=== PATIENT | female | born 1990 | race Caucasian/White ===

== ENCOUNTER 2017-10-20 13:37 | Emergency (ER) | payer OTHER ==
[2017-10-20 13:51] VITALS: BP 135/76
--- NOTE | 2017-10-20 13:55 | UC ---
FLU HPI - HPI Summary HPI Summary: cough, fever emesis times one yesterday no diarrhea--- - History of Current Complaint Chief Complaint: UCRespiratory Stated Complaint: VOMITING,FEVER Time Seen by Provider: 10/20/17 13:45 Hx Obtained From: Patient Hx Last Menstrual Period: January 2018 ?: Yes Onset/Duration: Gradual Onset, Lasting Days - 3 Severity Currently: Mild Severity Initially: Mild Pain Intensity: 0 Associated Signs & Symptoms: Positive: Fever, Cough, Sore Throat, Vomiting - Allergy/Home Medications Allergies/Adverse Reactions: Allergies Allergy/AdvReac Type Severity Reaction Status Date / Time Sulfa (Sulfonamide Allergy Hives Verified 10/20/17 13:51 Antibiotics) Home Medications: Home Medications Vit No.129/Iron/Folic [ One Daily Tablet] 1 tab PO DAILY [History Confirmed 10/20/17] PMH/Surg Hx/FS Hx/Imm Hx Previously Healthy: Yes - Surgical History Surgical History: None - Family History Known Family History: Positive: None - Social History Occupation: Works From/At Home Lives: With Family Alcohol Use: None Substance Use Type: None Smoking Status (MU): Never Smoked Tobacco Review of Systems Constitutional: Fever Skin: Negative Eyes: Negative ENT: Sore Throat Respiratory: Cough Cardiovascular: Negative Gastrointestinal: Vomiting Genitourinary: Negative Motor: Negative Neurovascular: Negative Musculoskeletal: Negative Neurological: Negative Psychological: Negative Is Patient Immunocompromised?: No All Other Systems Reviewed And Are Negative: Yes Physical Exam Triage Information Reviewed: Yes Appearance: Well-Appearing, No Pain Distress, Well-Nourished Vital Signs: Initial Vital Signs Temp 98.9 F 10/20/17 13:47 Pulse 94 10/20/17 13:47 Resp 12 10/20/17 13:47 BP 135/76 10/20/17 13:47 Pulse Ox 100 10/20/17 13:47 Vital Signs Reviewed: Yes Eye Exam: Normal Eyes: Positive: Conjunctiva Clear ENT Exam: Normal ENT: Positive: Normal ENT inspection, Hearing grossly normal, Pharynx normal, TMs normal. Negative: Nasal congestion, Nasal drainage, Tonsillar swelling, Tonsillar exudate, Trismus, Muffled voice, Hoarse voice, Dental tenderness, Sinus tenderness Dental Exam: Normal Neck exam: Normal Neck: Positive: Supple, Nontender, No Lymphadenopathy Respiratory Exam: Normal Respiratory: Positive: Chest non-tender, Lungs clear, Normal breath sounds, No respiratory distress, No accessory muscle use Cardiovascular Exam: Normal Cardiovascular: Positive: RRR, No Murmur, Pulses Normal, Brisk Capillary Refill Musculoskeletal Exam: Normal Musculoskeletal: Positive: Strength Intact, ROM Intact, No Edema Neurological Exam: Normal Neurological: Positive: Alert, Muscle Tone Normal Psychological Exam: Normal Skin Exam: Normal Diagnostics - Laboratory Diagnostic Studies Completed/Ordered: ua, rst influenza A/B (-) Flu Course/Dx - Course Course Of Treatment: tylenol for pain fever increase fluids follow with pcp - Differential Dx/Diagnosis Provider Diagnoses: Viral illness Discharge - Discharge Plan Condition: Stable Disposition: HOME Patient Education Materials: Upper Respiratory Infection (DC) Referrals: [facility] [Provider Group] - If Needed
[2017-10-23 16:18] LABS: Bordetella pertussis PCR Negative
--- NOTE | 2017-10-24 18:07 | UC ---
- Progress Note Progress Note: neg pertussis no change Lawrence 10/24/2017
== END 2017-10-20 14:22 | disposition home or self-care (01) ==
LOC: UCEAST 13:37
DX: B34.9 Viral infection, unspecified (principal)
CPT/HCPCS: 81003; 87502; 87651; 87798; 99212; G0463

== ENCOUNTER 2018-06-09 21:00 | Emergency (ER) | payer OTHER ==
--- NOTE | 2018-06-09 22:38 | RAD ---
EXAM: US Duplex Left Lower Extremity Veins CLINICAL HISTORY: 28 years old, female; Pain; Leg, lower; Left; Additional info: Left leg pain TECHNIQUE: Real-time duplex ultrasound scan of the left lower extremity veins integrating B-mode two-dimensional vascular structure, Doppler spectral analysis, color flow Doppler imaging and compression. COMPARISON: No relevant prior studies available. FINDINGS: Deep veins: Unremarkable. No DVT in the visualized common femoral, femoral, proximal deep femoral or popliteal veins. The veins demonstrate normal color flow, are normally compressible, with normal phasic flow and/or augmentation response. Superficial veins: Unremarkable. No thrombus in the visualized great saphenous vein. Soft tissues: No acute findings. No popliteal cyst. IMPRESSION: Normal left lower extremity duplex venous ultrasound. To contact [facility] with a general question: [facility] - [phone] For direct physician to physician contact: Physician Hotline - [phone] [facility] ([facility] Facility ID #[id number])
--- NOTE | 2018-06-09 22:39 | ED ---
Lower Extremity - HPI Summary HPI Summary: 28-year-old female presents with left leg pain for the past couple days. She is on control. She is nonsmoker. She doesn't know her family history. No recent travel or surgeries. States the pain is been traveling around her leg. Pain is greatest anterior and lateral aspect of her leg. No injury. - History of Current Complaint Chief Complaint: EDExtremityLower Stated Complaint: LT LEG ISSUE Time Seen by Provider: 06/09/18 21:32 Hx Last Menstrual Period: January 2018 Pain Intensity: 3 - Allergies/Home Medications Allergies/Adverse Reactions: Allergies Allergy/AdvReac Type Severity Reaction Status Date / Time Sulfa (Sulfonamide Allergy Hives Verified 10/20/17 13:51 Antibiotics) Home Medications: Home Medications Desogestrel-Ethinyl Estradiol [Juleber 0.15-30 mg-Mcg] 1 tab PO DAILY 06/09/18 [ History Confirmed 06/09/18] PMH/Surg Hx/FS Hx/Imm Hx Endocrine/Hematology History: Denies: Hx Anticoagulant Therapy Respiratory History: Denies: Hx Asthma Psychiatric History: Reports: Hx Anxiety, Hx Depression Infectious Disease History: No Infectious Disease History: Denies: Traveled Outside the [place] in Last 30 Days - Family History Known Family History: Positive: None, Unknown - Social History Alcohol Use: None Substance Use Type: Reports: None Smoking Status (MU): Never Smoked Tobacco Review of Systems Negative: Fever Negative: Chest Pain Negative: Shortness Of Breath Positive: Myalgia - left leg pain All Other Systems Reviewed And Are Negative: Yes Physical Exam Triage Information Reviewed: Yes Vital Signs On Initial Exam: Initial Vitals Temp Pulse Resp BP Pulse Ox 97.6 F 113 20 163/111 100 06/09/18 21:02 06/09/18 21:02 06/09/18 21:02 06/09/18 21:02 06/09/18 21:02 Vital Signs Reviewed: Yes Appearance: Positive: Well-Appearing Skin: Positive: Warm, Dry Head/Face: Positive: Normal Head/Face Inspection Eyes: Positive: Normal, Conjunctiva Clear ENT: Positive: Pharynx normal Respiratory/Lung Sounds: Positive: Clear to Auscultation, Breath Sounds Present Cardiovascular: Positive: Normal, RRR Musculoskeletal: Positive: Strength/ROM Intact - left leg, Other - tenderness left anterior mensah, good pulses, sensation grossly intact Neurological: Positive: Normal Psychiatric: Positive: Normal Diagnostics - Vital Signs Vital Signs Temp Pulse Resp BP Pulse Ox 06/09/18 21:02 97.6 F 113 20 163/111 100 - Laboratory Lab Statement: Any lab studies that have been ordered have been reviewed, and results considered in the medical decision making process. - Ultrasound No standard instances Ultrasound Interpretation: No Acute Changes Ultrasound Interpretation Completed By: Radiologist Lower Extremity Course/Dx - Course Course Of Treatment: 28-year-old female presents with left leg pain for the past couple days. She is on control. She is nonsmoker. She doesn't know her family history. No recent travel or surgeries. States the pain is been traveling around her leg. Pain is greatest anterior and lateral aspect of her leg. No injury. On exam mild tenderness anterior mensah. Neurovascular intact. Ultrasound negative. Told to take ibuprofen and to rest. Patient understands and agrees with plan. - Diagnoses Differential Diagnosis/HQI/PQRI: Positive: DVT, Sprain, Strain Provider Diagnoses: Left leg pain Discharge - Sign-Out/Discharge Documenting (check all that apply): Patient Departure - Discharge Plan Condition: Good Disposition: HOME Patient Education Materials: Leg Pain (ED) Referrals: No Primary Care Phys,NOPCP [Primary Care Provider] - Additional Instructions: no DVT seen on u/s Ice Elevate Take Tylenol or ibuprofen for pain every 6 hours Follow up with primary within 5 days Return to ED if develop any new or worsening symptoms - Billing Disposition and Condition Condition: GOOD Disposition: Home
[2018-06-09 23:06] VITALS: BP 157/102
== END 2018-06-09 23:05 | disposition home or self-care (01) ==
LOC: ED 21:00
DX: M79.605 Pain in left leg (principal)
CPT/HCPCS: 99281

== ENCOUNTER 2018-11-01 16:15 | Emergency (ER) | payer OTHER ==
--- NOTE | 2018-11-01 16:32 | ED ---
HPI Chest Pain - HPI Summary HPI Summary: A 28 y/o F presents to ED with c/o chest "tightness:" onset at 1430 today. Pt was driving at onset of sx. The CP radiated to the back and lasted 15-20 minutes before spontaneously resolving ADMISSIONS RN. Denies n/v, diaphoresis, dizziness/ lightheadedness. She has never had a CP episode similar to this, she has no cardiac PMHx aside from HTN at the end of her . She is a non-smoker. Denies surgeries. She does have anxiety and gets panic attacks, but she felt this afternoon's sx were felt different. - History of Current Complaint Chief Complaint: EDChestPainROMI Hx Obtained From: Patient Hx Last Menstrual Period: January 2018 Onset/Duration: Started Hours Ago, Resolved Timing: Lasting Minutes - 15-20 mins Initial Severity: Mild Current Severity: None Pain Intensity: 2 Pain Scale Used: 0-10 Numeric Chest Pain Radiates: Yes Chest Pain Radiates To:: Back Character: Tightness Associated Signs and Symptoms: Negative: Dizziness, Lightheadedness, Diaphoresis , Nausea, Vomiting Related History: Obesity - Allergy/Home Medications Allergies/Adverse Reactions: Allergies Allergy/AdvReac Type Severity Reaction Status Date / Time Sulfa (Sulfonamide Allergy Hives Verified 11/01/18 16:24 Antibiotics) Home Medications: Home Medications Norethindrone [Deblitane] 1 tab PO DAILY 11/01/18 [History Confirmed 11/01/18] PMH/Surg Hx/FS Hx/Imm Hx Previously Healthy: No Endocrine/Hematology History: Denies: Hx Anticoagulant Therapy, Hx Diabetes Cardiovascular History: Denies: Hx Hypercholesterolemia Respiratory History: Denies: Hx Asthma Psychiatric History: Reports: Hx Anxiety, Hx Depression - Surgical History Surgery Procedure, Year, and Place: Denies. Infectious Disease History: No Infectious Disease History: Denies: Traveled Outside the [place] in Last 30 Days - Family History Known Family History: Positive: Cardiac Disease - grandfather: CHF - Social History Occupation: Unemployed - OTHER Lives: With Family Alcohol Use: None Hx Substance Use: No Substance Use Type: Reports: None Hx Tobacco Use: No Smoking Status (MU): Never Smoked Tobacco Review of Systems Negative: Skin Diaphoresis Positive: Chest Pain - radiating to back; resolved Negative: Vomiting, Nausea Neurological: Other - neg: dizziness/lightheadedness All Other Systems Reviewed And Are Negative: Yes Physical Exam - Summary Physical Exam Summary: VITAL SIGNS: Reviewed. GENERAL: Patient is a well-developed and obese FEMALE who is lying comfortable in the stretcher. Patient is not in any acute respiratory distress. HEAD AND FACE: No signs of trauma. No ecchymosis, hematomas or skull depressions. No sinus tenderness. EYES: PERRLA, EOMI x 2, No injected conjunctiva, no nystagmus. EARS: Hearing grossly intact. Ear canals and tympanic membranes are within normal limits. MOUTH: Oropharynx within normal limits. NECK: Supple, trachea is midline, no adenopathy, no JVD, no carotid bruit, no c- spine tenderness, neck with full ROM. CHEST: Symmetric, no tenderness at palpation LUNGS: Clear to auscultation bilaterally. No wheezing or crackles. CVS: Regular rate and rhythm, S1 and S2 present, no murmurs or gallops appreciated. ABDOMEN: Soft, non-tender. No signs of distention. No rebound, no guarding, and no masses palpated. Bowel sounds are normal. EXTREMITIES: FROM in all major joints, no edema, no cyanosis or clubbing. NEURO: Alert and oriented x 3. No acute neurological deficits. Speech is normal and follows commands. SKIN: Dry and warm Triage Information Reviewed: Yes Vital Signs On Initial Exam: Initial Vitals Temp Pulse Resp BP Pulse Ox 99.2 F 107 16 153/119 100 11/01/18 16:20 11/01/18 16:20 11/01/18 16:20 11/01/18 16:20 11/01/18 16:20 Vital Signs Reviewed: Yes Diagnostics - Vital Signs Vital Signs Temp Pulse Resp BP Pulse Ox 11/01/18 16:20 99.2 F 107 16 153/119 100 - Laboratory Result Diagrams: 11/01/18 17:12 11/01/18 17:12 Lab Statement: Any lab studies that have been ordered have been reviewed, and results considered in the medical decision making process. - Radiology CXR Radiology Interpretation Completed By: Radiologist Summary of Radiographic Findings: IMPRESSION: No active cardiopulmonary disease is noted. ED provider has reviewed this report. - EKG 1637 Cardiac Rate: Tachycardia - 103 bpm EKG Rhythm: Sinus Tachycardia Summary of EKG Findings: no ST elevation, nml axis. Re-Evaluation - Re-Evaluation 1 Re-Evaluation Time: 19:10 Change: Improved Comment: Discussing results with pt and plans for D/C. Chest Pain Course/Dx - Course Assessment/Plan: This patient is a 28-year-old female who presents to the emergency department with a chief complaint of having chest pain. The patient reports a sharp pain when she was driving, it lasted for about 15 minutes and resolved. Patient reports that she has history of panic attacks and she felt that it was a panic attack. However she waited to come to the emergency department to rule out any heart problems. EKG is a normal sinus rhythm without any ST elevations. Test results without any significant abnormality, bili is negative, troponin 0.00, urinalysis is negative. Chest x-ray impression : No active Pulmonary disease. D-dimer is less than 200. Therefore I do not suspect that the patient has a PE. Since the patient doesnt have any comorbidities, I do not suspect patient has a localized syndrome. Heart score is 0. I discussed all the findings and test results with the patient. Patient was instructed to return to the emergency room immediately if any of the symptoms return or worsens. Plan of care was discussed with the patient and she understands and agrees. All questions were answered to patient satisfaction. There were no further complaints or concerns. Lung exam before discharge: CTA B/ L. Good air exchange. No wheezing or crackles heard. CVS: S1 and S2 present. No murmurs appreciated. Patient is alert and oriented x 3. Patient is hemodynamically stable. Patient will be discharged home with follow up PCP in the next 2-3 days. - Chest Pain Differential Diagnosis/HQI/PQRI: Acute OR, ACS, Angina, CHF, Chest Wall, GI Disease, Lower Respiratory Infection, Pulmonary Edema - Diagnoses Provider Diagnoses: Atypical chest pain Discharge - Sign-Out/Discharge Documenting (check all that apply): Patient Departure - D/C Patient Received Moderate/Deep Sedation with Procedure: No - Discharge Plan Condition: Stable Disposition: HOME Patient Education Materials: Chest Pain (ED) Referrals: [facility] [Outside] [facility] [place]Outside] - 3 Days Additional Instructions: FOLLOW UP WITH YOUR PRIMARY CARE PROVIDER WITHIN ONE WEEK FOR HIGH BLOOD PRESSURE NOTED TODAY. RETURN TO THE ED FOR ANY WORSENING OR NEW SYMPTOMS. - Billing Disposition and Condition Condition: STABLE Disposition: Home - Attestation Statements Document Initiated by Scribe: Yes Documenting Scribe: Laci Paez Provider For Whom Trever is Documenting (Include Credential): Dr. Franklyn Kerr MD Scribe Attestation: I, Laci Paez, scribed for Dr. Franklyn Kerr MD on 11/01/18 at 2226. Scribe Documentation Reviewed: Yes Provider Attestation: The documentation as recorded by the trever, Laci Paez accurately reflects the service I personally performed and the decisions made by me, Dr. Franklyn Kerr MD Status of Scribyosef Document: Viewed
[2018-11-01 16:59] LABS: Urine Appearance Clear; Urine Bacteria Absent (Absent); Urine Bilirubin Negative (Negative); Urine Blood 1+ (Negative); Urine Color Colorless; Urine Glucose Negative (Negative); Urine Ketones Negative (Negative); Urine Nitrite Negative (Negative); Urine Protein Negative (Negative); Urine Red Blood Cell Absent (Absent); Urine Specific Gravity 1.001 (1.010-1.030); Urine Squamous Epithelial Cell Present (Absent); Urine Urobilinogen Negative (Negative); Urine White Blood Cell Trace(0-5/hpf) (Absent)
--- OUTSIDE RECORDS SUMMARY | 2018-11-01 17:03 | XMS REPORT | Continuity of Care Document ---
:[address] [facility] Address [address] [place], [place] [id number] Phone Care Team Providers Name Role Phone May Swan NP Unavailable Unavailable Allergies, Adverse Reactions, Alerts Substance Reaction Status Sulfa (Sulfonamide Antibiotics) Nausea/Vomiting Active Medications Medication Instructions Dosage Effective Dates Status Comments (start - stop) Lyza 0.35 mg 1 tab po daily - Active tablet Apri 0.15 mg-0.03 take 1 tablet by - No Longer mg tablet oral route every Active day, skipping placebo week for continuous cycling Problems Condition Effective Dates (start - Clinical Status Comments stop) Encounter for initial prescription of contraceptive pills Encntr for cerv smear to cnfrm norm smr fol init abn smear Encntr for best second jobs exam (general) (routine) w/o abn findings Encounter for oth screening for malignant neoplasm of breast Encounter for surveillance of contraceptive pills Encounter for initial prescription of contraceptive pills Less than 8 weeks gestation of Human immunodeficiency virus [HIV] - counseling Encounter for test, result positive Threatened Encounter for surveillance of contraceptive pills Low grade intrepith lesion cyto smr crvx (LGSIL) Encounter for surveillance of contraceptive pills Other specified noninflammatory disorders of vagina Encounter for removal of intrauterine contraceptive device Encounter for initial prescription of contraceptive pills Encounter for prescription of emergency contraception Oth cond assoc w female genital organs and menstrual cycle Elevated blood-pressure reading, w/o diagnosis of htn RhD negative - Active Procedures Procedure Date OFFICE/OUTPATIENT VISIT, EST Method Initiation OTHER Medical Services Contraceptive Wallcovering Hanger.Svc. Other Wallcover[facility]anger[employer]Svc. STI Results Test Name Date and Time Measure Units Reference Range Abnormal Flag Status Comments No information Advance Directives Directive Yes / No Effective Date File Name No information Encounters Encounter Practice Location Reason(s) Diagnoses Date Provider Providers Description For Visit Copied on Encounter OFFICE/OUTPA [facility] Encounter for [place] Referring TIENT VISIT, [facility] [place] Control initial May. Provider: ROSEMARY Mcguire (chief prescription of [address] complaint) contraceptive pills [place], [address] [place] [address] [place], [address], [place], [place], [place], [address], [place], [address]. [id number], [place]. [place] tel:[phone] [facility] Encntr for cerv [facility] [place] smear to cnfrm norm May. [facility] smr fol init abn [address] smear [place], [address] [place], [place], [place], [address], [id number], [place]. [place] tel:[phone] [facility] Encntr for best second jobs exam [facility] Referring [facility] [place] (general) (routine) May. Provider: Shayla w/o abn [address] findingsEncounter [place], [address] [place] for malignant [place], St, St, [place], [place]oplasm [place], [place] [address], [place], [address]. [id number], surveillance of [place]. [place] contraceptive pills tel:[phone] [facility] Encounter for [facility] Referring [facility] [place] initial May. Provider: Shayla prescription of [address] contraceptive pills [place], [address] [place], [address], [place], [place], [place], [address], [place], [address]. [id number], [place]. [place] tel:[phone] [facility] Less than 8 weeks [facility] [place] gestation of 0-201 Leighann Southern [address] . [address] [place] [facility], [address] [place], [address], [place], [place], [address], [id number], [place]. [place] tel:+ tel:[phone] [facility] Human [facility] [place] immunodeficiency 4-201 Priscila. [facility] virus [HIV] [address] [facility] [address] [place] result [place], , [place], [place], [address]. [id number], tel:[phone] [place] [phone] tel:[phone] [facility] Encounter for [facility] [place] surveillance of 3-201 Katey. [facility] contraceptive pills [address] [place] [facility], [address] [place], [address], [place], [place], [address]. [id number], tel:+ [phone] tel:[phone] [facility] Low grade intrepith [facility] [place] lesion cyto smr 8-201 Lacy. Southern crvx [address] (LGSIL)Encounter [facility], [facility] for surveillance of St, [address] [place] contraceptive [place], , [place], [place] [address]. [id number], noninflammatory tel:+[phone] disorders of vagina [id number] tel:[phone] [facility] Encounter for [facility] [place] removal of 6-201 Leighann Southern intrauterine 7 . [address] [facility], [facility] deviceEncounter for St, [address] [place] initial [place], [place], [place], [place], contraceptive [address], [id number], pillsEncounter for [place]. [place] prescription of tel:[phone] tel:[phone] contraceptionOth cond assoc w female genital organs and menstrual cycleElevated blood-pressure reading, w/o diagnosis of htn Family History Family Member Diagnosis Age At Onset 1st degree relative No hx of osteoporosis 1st degree relative No hx of venous thromboembolism Mother Cancer, breast 49 1st degree relative No hx of coronary heart disease (female <65, male <55) 1st degree relative No hx of cancer of breast, colon, endometrium or ovary Immunizations Vaccine Date Status Comments No information Payers Payer name Insurance type Covered libertarian ID Authorization(s) Juan [employer]OZCO [facility] CI [id number] Social History Type Description Quantity Date Captured Comments Alcohol Use Details Unknown Caffeine Use Details Unknown Tobacco Use Status Current non-smoker Smoking Status Never smoker Non-Smoking Tobacco : No Details Available : No Details Available 2018 Use Details Sex Female Vital Signs Date / Height Weight BMI Pulse Blood Temperature Respiratory Body Head BMI Pulse Inhaled Time: Rate Pressure Rate Surface Circumference percentile Ox Ox Area 61.00 265.00 50.0 148/2019 in lbs 7 mm[Hg] 12:02 kg/m PM eter (2) Chief Complaint And Reason For Visit Most recent encounter only, dated '10/09/2018 12:00'. Control ( chief complaint) Reason For Referral Reason For Referral No information Plan Of Treatment Date Type Action Status No information History Of Present Illness Encounter Date Complaint History Of Present Illness No information Functional Status Date Functional Assessment No information Medications Administered Medication Instructions Dosage Effective Dates (start - stop) Status Comments No information Instructions Date Instruction Additional Information No information Assessments Type Assessment Date assessment Encounter for initial prescription of contraceptive pills 2018 Goals Health Concern Goal Type Priority Status Date No information Medical Equipment Description Device [place] Device Identifier Effective Dates (start - stop ) Status No information Mental Status Date Cognitive Assessment No information Health Concerns Observation Date No information Concern Status Date No information
--- OUTSIDE RECORDS SUMMARY | 2018-11-01 17:03 | XMS REPORT | Continuity of Care Document ---
:1990 Author Organization [facility] Address [address] [place], [place] [id number] Phone Care Team Providers Name Role Phone May Swan NP Unavailable Unavailable Allergies, Adverse Reactions, Alerts Substance Reaction Status Sulfa (Sulfonamide Antibiotics) Nausea/Vomiting Active Medications Medication Instructions Dosage Effective Dates (start - Status Comments stop) Lyza 0.35 mg tablet 1 tab po daily - Active Problems Condition Effective Dates (start - Clinical Status Comments stop) Encounter for initial prescription of contraceptive pills Encntr for cerv smear to cnfrm norm smr fol init abn smear 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 [facility] [address] [place] [place], [place], [address], [id number], [place]. [place] tel:[phone] [facility] for [facility] [place] initial May. Provider: [facility] prescription of [address] contraceptive pills [place], [address] [place] [address] [place], [address], [place], [place], [address], [place], [address]. [id number], [place]. [place] tel:[phone] [facility] Encntr for cerv Jan- [facility] [place] smear to cnfrm norm May. [facility] fol init abn [address] smear [place], [address] [place], [place], [address], [id number], [place]. 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 Provider: [facility] w/o abn [address] findingsEncounter [place], [address] [place] for malignant [place], St, St, [place], [place], [place] [address], [place], [address]. [id number], surveillance of [place]. [place] contraceptive pills tel:[phone] [facility] [place] initial May. Provider: [facility] prescription of [address] contraceptive pills [place], [address] [place], [address], [place], [place], [address], [place], [address]. [id number], [place]. [place] tel:[phone] [facility] Less than 8 weeks [facility] [place] gestation of 0-201 Leighann [facility] 7 . [address] [place], [address] [place], [place], [address], [id number], [place]. [place] tel:+ tel:[phone] [facility] Human Aug-0 [facility] [place] immunodeficiency 4-201 Priscila. [facility] virus [HIV] [address] counselingEncounter [place] [facility], [facility] for test, , [address] [place] result [place], , [place], [place], [address]. [id number], tel:[phone] tel:[phone] [facility] Encounter for Nov-0 [facility] [place] surveillance of 3-201 Katey. [facility] contraceptive pills [address] [place] [facility], [facility] St, [address] [place], [place], [address]. [id number], tel:[phone] tel:[phone] [facility] Low grade intrepith Sep- [facility] [place] lesion cyto smr 8-201 Lacy. [facility] crvx [address] (LGSIL)Encounter [facility], [facility] for surveillance of St, [place] contraceptive [place], , [place], [place] [address]. [id number], noninflammatory tel:[phone] of [phone] tel:[phone] [facility] Encounter for Sep- [facility] [place] removal of 6201 Leighann [facility] intrauterine 7 . [address] [facility] deviceEncounter for St, [place] initial [place], [place], [place] [address], [id number], pillsEncounter for [place]. [place] prescription of tel:[phone] tel:+ [phone] contraceptionOth cond assoc w female genital organs [...] information Payers Payer name Insurance type Covered alliance party ID Authorization(s) Juan [employer] [facility] CI [id number] Social History Type Description Quantity Date Captured Comments Alcohol Use Details Unknown Caffeine Use Details Unknown Tobacco Use Status Unknown Smoking Status Never smoker Sex Female Vital Signs Date / Height Weight BMI Pulse Blood Temperature Respiratory Body Head BMI Pulse Inhaled Time: Rate Pressure Rate Surface Circumference percentile [place] Area No information Chief Complaint And Reason For Visit No information Reason For Referral Reason For Referral No information Plan Of Treatment Date Type Action Status No information History Of Present Illness Encounter Date Complaint History Of Present Illness No information Functional Status Date Functional Assessment No information Medications Administered Medication Instructions Dosage Effective Dates (start - stop) Status Comments No information Instructions Date Instruction Additional Information No information Assessments Type Assessment Date No information Goals Health Concern Goal Type Priority Status Date No information Medical Equipment Description Device [place] Device Identifier Effective Dates (start - stop ) Status No information Mental Status Date Cognitive Assessment No information Health Concerns Observation Date No information Concern Status Date No information
[2018-11-01 17:20] LABS: ABS Basophils 0 10^3/ul (0-0.2); ABS Eosinophils 0.1 10^3/ul (0-0.6); ABS Monocytes 0.6 10^3/ul (0-0.8); ABS Neutrophils 6.3 10^3/ul (1.5-7.7); ABS Nucleated RBC 0 10^3/ul; Eosinophil % 1.4 %; Hematocrit 37 % (35-47); Hemoglobin 12.1 g/dl (12.0-16.0); Mean Corpuscular HGB Conc 33 g/dl (31-36); Mean Corpuscular Hemoglobin 25 pg (27-31); Mean Corpuscular Volume 77 fL (80-97); Mean Platelet Volume 8.1 fL (7.4-10.4); Nucleated Red Blood Cells % 0; Platelet Count 206 10^3/ul (150-450); Red Blood Count 4.75 10^6/ul (4.00-5.40); Red Cell Distribution Width 14 % (10.5-15); White Blood Count 9.1 10^3/ul (3.5-10.8)
[2018-11-01 17:37] LABS: ALT 22 U/L (7-52); AST 18 U/L (13-39); Albumin 4.1 g/dL (3.2-5.2); Albumin/Globulin Ratio 1.4 (1-3); Alkaline Phosphatase 68 U/L (34-104); Anion Gap 6 mmol/L (2-11); Blood Urea Nitrogen 12 mg/dL (6-24); CO2 Carbon Dioxide 24 mmol/L (22-32); Chloride 107 mmol/L (101-111); Creatine Kinase 110 U/L (10-223); EGFR African American 103.3 (>60); EGFR Non-African American 85.4 (>60); Globulin 2.9 g/dL (2-4); Glucose 94 mg/dL (70-100); Sodium 137 mmol/L (135-145)
[2018-11-01 17:41] LABS: CKMB ng/mL 1.8 ng/mL (0.6-6.3)
[2018-11-01 17:44] LABS: HCG Pregnancy < 0.60 mIU/mL
[2018-11-01 19:31] VITALS: BP 150/99
== END 2018-11-01 19:30 | disposition home or self-care (01) ==
LOC: ED 16:15
DX: R07.89 Other chest pain (principal); F41.9 Anxiety disorder, unspecified; F32.9 Major depressive disorder, single episode, unspecified; Z88.2 Allergy status to sulfonamides
CPT/HCPCS: 36415; 71045; 80053; 81003; 81015; 82550; 82553; 83605; 83880; 84443; 84484; 84702; 85025; 85379; 87086; 93005; 99283

== ENCOUNTER 2019-10-24 14:58 | Emergency (ER) | payer OTHER ==
[2019-10-24 15:23] VITALS: BP 152/83
--- NOTE | 2019-10-24 15:58 | UC ---
Respiratory Complaint HPI - HPI Summary HPI Summary: 29 y0 at 34 weeks gestational age, diagnosed with inlfuenza yesterday at [facility] and was started on Tamiflu. concerned because she was feeling dizzy yesterday, along with noting that her O2 sats by home oximetry were in the 90-95% range. She has no chest pain, vision changes. States that her blood pressure has been elevated during this , and she is taking a baby aspirin daily, but not on an antihypertensive. She has not had pre-eclampsia or induced hypertension in the past. States that she has good movements. - History of Current Complaint Chief Complaint: UCGeneralIllness Stated Complaint: FLU+ 90-95 O2 SAT. Time Seen by Provider: 10/24/19 15:51 Hx Obtained From: Patient Hx Last Menstrual Period: 34 weeks Onset/Duration: Sudden Onset - onset of lfu symptoms yesterday. Timing: Constant Severity Initially: Mild Severity Currently: Moderate Pain Intensity: 6 Character: Cough: Nonproductive Associated Signs And Symptoms: Positive: Fever, Nasal Congestion. Negative: Dyspnea - Risk Factors Pulmonary Embolism Risk Factors: Negative Cardiac Risk Factors: Hypertension Pseudomonas Risk Factors: Negative Tuberculosis Risk Factors: Negative - Allergies/Home Medications Allergies/Adverse Reactions: Allergies Allergy/AdvReac Type Severity Reaction Status Date / Time Sulfa (Sulfonamide Allergy Hives Verified 10/24/19 15:23 Antibiotics) Home Medications: Home Medications Norethindrone [Deblitane] 1 tab PO DAILY 11/01/18 [History Confirmed 10/24/19] Escitalopram * [Lexapro *] 20 mg PO DAILY 10/24/19 [History Confirmed 10/24/19] Oseltamivir CAP* [Tamiflu CAP*] 1 tab PO BID 10/24/19 [History Confirmed ] PMH/Surg Hx/FS Hx/Imm Hx - Additional Past Medical History Additional PMH: morbind obesity Other History Of: Negative For: Anticoagulant Therapy - Surgical History Surgical History: Yes Surgery Procedure, Year, and Place: adnoids. 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 Negative: Shortness Of Breath Cardiovascular: Positive: Negative Gastrointestinal: Positive: Negative Genitourinary: Positive: Negative Motor: Positive: Negative Neurovascular: Positive: Negative Musculoskeletal: Positive: Negative Neurological/Mental Status: Positive: Negative Psychological: Positive: Negative Is Patient Immunocompromised?: No Physical Exam Triage Information Reviewed: Yes Appearance: Ill-Appearing - looks mildly unwell Vital Signs: Initial Vital Signs Temp 97.6 F 10/24/19 15:08 Pulse 109 10/24/19 15:08 Resp 18 10/24/19 15:08 BP 152/83 10/24/19 15:08 Pulse Ox 98 10/24/19 15:08 Eyes: Positive: Conjunctiva Clear ENT: Positive: Pharynx normal Dental Exam: Normal Neck: Positive: Supple, Nontender, No Lymphadenopathy Respiratory: Positive: Lungs clear, Normal breath sounds Cardiovascular: Positive: RRR, No Murmur, Tachycardia Musculoskeletal: Positive: No Edema Neurological Exam: Normal Neurological: Positive: Alert, Muscle Tone Normal Psychological Exam: Normal Skin Exam: Normal Diagnostics - Laboratory Lab Results: Urine with 3 + leuks (without symptoms), NEGATIVE for protein. Respiratory Course/Dx - Course Course Of Treatment: Discussed normal oxygen saturation here, but concerned about elevated blood pressure. Although not tachypneic, she is tachycardic. Urine is without proteinuria, but + esterace. Initial blood pressure reading 0f 152/88, decreased to 142/80 after being seated , large arm cuff. - Differential Dx/Diagnosis Differential Diagnosis/HQI/PQRI: Influenza, Other - induced hypertension Provider Diagnosis: Influenza - Physician Notification/Consults Discussed Patient Care With: Nel Rodriguez - Reviewed BP elevation with Dr. Agosto; she advised follow up next week as arranged, not alarmed by current readings Time Discussed With Above Provider: 16:00 Discharge ED - Sign-Out/Discharge Documenting (check all that apply): Patient Departure All imaging exams completed and their final reports reviewed: No Studies - Discharge Plan Condition: Stable Disposition: HOME Patient Education Materials: Influenza (ED) Referrals: Parminder Dennison MD [Primary Care Provider] - Additional Instructions: Your oxygen status here is normal, and clinically you do not show evidence of a complicating infection. I am concerned about your elevated blood pressure and will check with with Dr. Rodriguez about the reading obtained here today. If you are short of breath, have chest pain, or decreased baby movements please go to the emergency room. - Billing Disposition and Condition Condition: STABLE Disposition: Home
== END 2019-10-24 16:20 | disposition home or self-care (01) ==
LOC: UCEAST 14:58
DX: O99.513 Diseases of the respiratory system complicating pregnancy, third trimester (principal); J11.1 Influenza due to unidentified influenza virus with other respiratory manifestations; Z3A.34 34 weeks gestation of pregnancy; Z88.2 Allergy status to sulfonamides
CPT/HCPCS: 81003; 87086; 99211; G0463

== ENCOUNTER 2019-11-16 06:18 | Inpatient (IN) | payer OTHER ==
--- OUTSIDE RECORDS SUMMARY | 2019-11-16 06:21 | XMS REPORT | Continuity of Care Document ---
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 [phone] Problems Active Problems Provider Date H/O: section Onset: 11/28/2017 Social History Type Date Description Comments Sex Unknown Tobacco Use Start: Unknown Never Smoked Cigarettes Smoking Status Reviewed: 04/06/19 Never Smoked Cigarettes ETOH Use Denies alcohol use Recreational Drug Use Denies Drug Use Exercise Type/Frequency Exercises regularly Seat Belt/Car Seat Always uses seat belt Allergies, Adverse Reactions, Alerts Active Allergies Reaction Severity Comments Date Sulfa Hives/Vomiting 06/01/2017 Sulfa Antibiotics Hives, Nausea And Vomiting 08/01/2017 Seasonal Allergies 06/01/2017 Medications Active Medications SIG Qnty Indications Ordering Provider Date Oseltamivir Phosphate 1 by mouth 10caps Chey Pisano, 10/23/2019 twice/ day for 5 CNM 75mg Capsules days Ondansetron HCL take one tablet 20tabs Lois Maciel, CNM 05/16/2019 4mg by mouth every 6 Tablets to 8 hours as needed for nausea 1 po qd Unknown Tablets Iron 1 by mouth every Unknown 325(65Fe) mg day Tablets Fish Oil 1 by mouth every Unknown 500mg Capsules day Lexapro 1 tab by mouth Unknown every day Medications Administered in Office Medication SIG Qnty Indications Ordering Provider Date Injection Rho (D) Immune Nel Rodriguez MD 10/08/2019 Globulin, Human, One Dose Package Injection PT SCRN Tbco Id as Non User Nel Rodriguez MD 04/13/2019 Injection PT SCRN Tbco Id as Non User Nel Rodriguez MD 04/06/2019 Injection Injection Rho (D) Immune Matthew Amaya M.D. 09/14/2017 Globulin, Human, One Dose Package Injection Immunizations CPT Code Status Date Vaccine Lot # [id number] Given 09/14/2017 Tetnus, Diptheria Toxoids And Acellular Pertussis, 499PG PT > 7Yrs Old Vital Signs Date Vital Result Comment 05/16/2019 10:58am BP Systolic 142 mmHg BP Diastolic 94 mmHg Height 60.98 inches 5'0.98" Weight 266.00 lb BMI (Body Mass Index) 50.3 kg/m2 Last Menstrual Period [id number] 4 Parity 3 04/13/2019 11:17am BP Systolic 132 mmHg BP Diastolic 78 mmHg Height 60.98 inches 5'0.98" Weight 268.00 lb BMI (Body Mass Index) 50.7 kg/m2 Last Menstrual Period 0550826 4 Parity 3 Results Test Acquired Date Facility Test Result H/L Range Note Laboratory test 11/08/2019 [facility] Genital For <pending> [place] [address] GRP B Strep [phone] Only Laboratory test 09/12/2019 [facility] Glucose 1 HR 108 mg/dL Normal 70-160 1 [place] [address] Post Prandial [phone] CBC With No 09/12/2019 [facility] White Blood 9.8 Normal 3.5- 10[place]8 [place] [address] Count 10^3/uL [phone] Red Blood Count 3.84 10^6/uL Normal 3.70-4.87 Hemoglobin 10.4 g/dL Low 12.0-16.0 Hematocrit 31 % Low 35-47 Mean Corpuscular Volume 80 fL Normal 80-97 Mean Corpuscular Hemoglobin 27 pg Normal 27-31 Mean Corpuscular HGB Conc 34 g/dL Normal 31-36 Red Cell Distribution Width 15 % Normal 10-15 Platelet Count 185 10^3/uL Normal 150-450 Mean Platelet Volume 8.3 fL Normal 7.4-10.4 Laboratory test 09/12/2019 [facility] AB Screen NEGATIVE 2 [place] [address] [phone] Laboratory test 08/03/2019 [facility] Cytology SEE RESULT 3 [place] [address] BELOW [phone] GC/Chlamydia Dna 08/03/2019 [facility] GCCHL Disclaimer (SEE NOTE) [address] [place] [address] [phone] Chlamydia trachomatis Trena Negative Negative Neisseria gonorrhoeae (GC) Trena Negative Negative Laboratory test 06/25/2019 [facility] Glucose 1 HR 115 mg/dL Normal 70-160 5 [place] [address] Post Prandial [phone] Afp,Screen 06/18/2019 [facility] Results [place] [address] Summary [phone] Neural Tube Defect Estimate SEE BELOW 6 Collection Date 06/18/19 Maternal Date of 90 Calculated Age At MARIELLE 29 years Maternal Weight 266 lbs Insulin Dependent Diabetes No Current Cigarette Smoking Stat non-smoker Patient Race non-Black Number of Fetuses 1 Number of Chorions Monochorionic Ivf No Prev Preg w/Neural Tube Defect No Patient/Father of Baby Has NTD No Initial Or Repeat Testing Initial testing Physician Phone Number [phone] MARIELLE by LMP 11/26/19 GA On Collection By Dates SEE BELOW wk,d 7 GA Used In Risk Estimate Dates estimate Afp 17.5 ng/mL Afp MoM 0.68 MoM <2.50 Interpretation See Comment 8 Additional Comments See Comment 9 Recommended Follow Up None. General Test Information See Comment 10 Lead 06/18/2019 [facility] Lead,Venous, B < 1.0 g/dL 0.0- 4.9 11 [place] [address] [phone] Venous/Capillary Venous Submitting Laboratory Phone [phone] Laboratory 06/18/2019 [facility] Syphillis Negative Negative 13 [place] [address] Igg W/Reflex [phone] RPR HIV 1&2 p24 06/18/2019 [facility] HIV 4th [place] [address] Generation [phone] Laboratory 06/18/2019 [facility] Hemoglobin 5.3 % Normal 4.0- 5.6 14 [place] [address] A1c [phone] Hepatitis B Surface Antigen Nonreactive Nonreactive 15 Type And Screen 06/18/2019 [facility] Patient [place] [address] [phone] Antibody Screen NEGATIVE Laboratory test 06/18/2019 [facility] Uric Acid 4.2 mg/dL Normal 2.3-6.6 16 [place] [address] [phone] Rubella Screen IgG Immune Immune 17 Comp Metabolic 06/18/2019 [facility] Sodium 136 mmol/L Normal 135-145 Panel [place], [place] [address] [phone] Potassium 4.4 mmol/L Normal 3.5-5.0 Chloride 106 mmol/L Normal 101-111 Co2 Carbon Dioxide 25 mmol/L Normal 22-32 Anion Gap 5 mmol/L Normal 2-11 Glucose 79 mg/dL Normal 70-100 Blood Urea Nitrogen 8 mg/dL Normal 6-24 Creatinine 0.63 mg/dL Normal 0.51-0.95 BUN/Creatinine Ratio 12.7 Normal 8-20 Calcium 9.2 mg/dL Normal 8.6-10.3 Total Protein 6.7 g/dL Normal 6.4-8.9 Albumin 3.7 g/dL Normal 3.2-5.2 Globulin 3.0 g/dL Normal 2-4 Albumin/Globulin Ratio 1.2 Normal 1-3 Total Bilirubin 0.30 mg/dL Normal 0.2-1.0 Alkaline Phosphatase 60 U/L Normal 34-104 Alt 15 U/L Normal 7-52 Ast 13 U/L Normal 13-39 Egfr Non- 111.7 >60 Egfr 135.2 >60 18 CBC With No 06/18/2019 [facility] White Blood 9.1 10^3/uL Normal 3.5-10.8 [place] [address] Count [phone] Red Blood Count 4.30 10^6/uL Normal 3.70-4.87 Hemoglobin 11.8 g/dL Low 12.0-16.0 Hematocrit 35 % Normal 35-47 Mean Corpuscular Volume 81 fL Normal 80-97 Mean Corpuscular Hemoglobin 27 pg Normal 27-31 Mean Corpuscular HGB Conc 34 g/dL Normal 31-36 Red Cell Distribution Width 14 % Normal 10-15 Platelet Count 188 10^3/uL Normal 150-450 Mean Platelet Volume 8.9 fL Normal 7.4-10.4 GC/Chlamydia Dna 06/18/2019 [facility] GCCHL Disclaimer (SEE NOTE) [address] [place] [address] [phone] Chlamydia trachomatis Trena Negative Negative Neisseria gonorrhoeae (GC) Trena Negative Negative Laboratory test 06/18/2019 [facility] Miscellaneous Test See Comment 20 finding [place], [place] [address] [phone] Urine Culture And 05/16/2019 [facility] Urine Culture SEE RESULT 21 [place] [address] BELOW [phone] 1 [id number] 2 [id number] 3 SEE RESULT BELOW Name: EMILEE CAVANAUGH : [address]: Nel Rodriguez MD Acct: [id number] Unit: [id number] AGE: 29 Location: [facility] Re08/03/19 SEX: F Status: REG REF SPEC: [id number] LUCINDA: 08/03/19-1359 [facility] DR: Nel Rodriguez MD REQ: [id number] RECD: 08/03/19 STATUS: SOUT _ ORDERED: TP IMAGE ANALYS, HPV/Thin Prep COMMENTS: [id number] FINAL DIAGNOSIS Negative for Intraepithelial lesion or Malignancy HPV RESULTS Date Time Test Result Flag (u) Normal Range 08/03/19 1359 HPV TRENA Negative Negative The high-risk HPV types detected by the assay include: 16, 18, 31, 33, 35, 39, 45, 51, 52, 56, 58, 59, 66, and 68. SPECIMEN(S) RECEIVED A. Ectocervical/Endocervical CYTOLOGY ADEQUACY Specimen Adequacy: Satisfactory of evaluation Transformation zone component identified CONTINUED ON NEXT PAGE DEPARTMENT OF PATHOLOGY, [address] [place] [address] Haresh Mcdonald M.D. Director [facility] # [id number] CYTOLOGY PATIENT INFORMATION Patient Information: HPV: High risk HPV RNA testing regardless of pap results. Actual Specimen Date: 08/03/19 Last Menstrual Date: 02/20/19 Signed by and Reported on: LUIS EDUARDO Archer (ASCP) 6810 This Pap test was evaluated with the assistance of the CrunchyrollPrep Test Imaging System. Due to cytologic findings at the construction plumber microscope, comprehensive manual rescreening by a Fish Hatchery Superintendent may be required. The Pap Smear is a screening test designed to aid in the detection of premalignant and malignant conditions of the uterine cervix. It is not a diagnostic procedure and should not be used as the sole means of detecting cervical cancer. Both false- positive and false- negative reports do occur. Depending on your risk status, a Pap smear should be obtained and evaluated every 1-3 years. END OF REPORT DEPARTMENT OF PATHOLOGY, [address] [place] [address] Haresh Mcdonald M.D. Director [facility] # [id number] 4 As with all diagnostic procedures, the laboratory results obtained should be used in conjunction with other clinical information available to the physician, including confirmation by another method, as applicable. 5 [id number] 6 RESULT: 7 RESULT: 17,0 8 RESULT: Screen negative for neural tube defects. 9 RESULT: Reviewed by Filemon Rodriguez M.D. 10 This screening provides an estimation of risk, not a diagnosis. Incorrect or incomplete information may significantly alter results. Results may be unreliable in twin pregnancies with a demise. Results are not available for pregnancies with triplets and higher-order multiples. A positive result occurs when the AFP MoM equals or exceeds 2.5. Screen results and family history influence individual risk. If there is a family history of a neural tube defect, chromosome abnormality, or other inherited condition, consider the option of a genetic consultation. For further information, please contact the maternal screening laboratory at . ADDITIONAL INFORMATION This test was developed and its performance characteristics determined by [facility] in a manner consistent with CLIA requirements. This test has not been cleared or approved by the U.S. Food and Drug Administration. Test Performed by: [facility] - [address] [address] Customs Investigator: Nelson Sweet M.D. Ph.D.; CLIA# [id number] 11 ADDITIONAL INFORMATION Testing performed by Inductively Coupled Plasma-Mass Spectrometry (ICP-MS). This test was developed and its performance characteristics determined by [facility] in a manner consistent with CLIA requirements. This test has not been cleared or approved by the U.S. Food and Drug Administration. 12 Test Performed by: [facility] - [facility] [address] [place] [address] Customs Investigator: Nelson Sweet M.D. Ph.D.; CLIA# [id number] 13 [id number] 14 Therapeutic target for the treatment of diabetes mellitus patients is <7% HBA1C, and in selective patients <6.0%. Please refer to [place] [employer] diabetic care guidelines for further information. 15 [id number] 18 Because ethnic data is not always readily available, this report includes an eGFR for both -Americans and non- Americans. The National Kidney Disease Education Program (NKDEP) does not endorse the use of the MDRD equation for patients that are not between the ages of 18 and 70, are , have extremes of body size, muscle mass, or nutritional status, or are non- or non-. According to the National Kidney Foundation, irrespective of diagnosis, the stage of the disease is based on the level of kidney function: Stage Description GFR(mL/min/1.73 m(2)) 1 Kidney damage with normal or decreased GFR 90 2 Kidney damage with mild decrease in GFR 60-89 3 Moderate decrease in GFR 30-59 4 Severe decrease in GFR 15-29 5 Kidney failure <15 (or dialysis) 19 As with all diagnostic procedures, the laboratory results obtained should be used in conjunction with other clinical information available to the physician, including confirmation by another method, as applicable. 20 Test Result Flag Unit [facility] Drug Screen, U Alcohol Negative mg/dL Cutoff: 10 Amphetamines Negative ng/mL REFERENCE VALUE Cutoff: 500 Barbiturates Negative ng/mL REFERENCE VALUE Cutoff: 200 Benzodiazepines Negative ng/mL REFERENCE VALUE Cutoff: 100 Cocaine Negative ng/mL REFERENCE VALUE Cutoff: 150 Methadone metabolite Negative ng/mL REFERENCE VALUE Cutoff: 300 Opiates Negative ng/mL REFERENCE VALUE Cutoff: 300 Phencyclidine Negative ng/mL Cutoff: 25 Tetrahydrocannabinol Negative ng/mL Cutoff: 50 ADDITIONAL INFORMATION This report is intended for use in clinical monitoring or management of patients. It is not intended for use in employment-related testing. This test has been modified from the ear nose and throat specialist's instructions. Its performance characteristics were determined by [facility] in a manner consistent with CLIA requirements. This test has not been cleared or approved by the U.S. Food and Drug Administration. Oxycodone Negative ng/mL REFERENCE VALUE Cutoff: 100 ADDITIONAL INFORMATION This report is intended for use in clinical monitoring or management of patients. It is not intended for use in employment-related testing. Drugs detected: See Comment Citalopram/Escitalopram detected; assay unable to distinguish. No other drugs detected. Quantitative testing may be available at an additional charge. Specimens are retained for 10 business days. This is a screening assay only and false-positive or false-negative results can occur. If confirmation testing of any drugs found is needed, please call the lab. Specimens are retained in the laboratory for two weeks. This test is not intended for use in compliance monitoring or employment-related testing. ADDITIONAL INFORMATION This test was developed and its performance characteristics determined by [facility] in a manner consistent with CLIA requirements. This test has not been cleared or approved by the U.S. Food and Drug Administration. Test Performed by: [place] [address] Customs Investigator: Nelson Sweet M.D. Ph.D.; CLIA# [id number] 21 SEE RESULT BELOW Name: EMILEE CAVANAUGH : [address]: Lois Maciel CNM Acct: [id number] Unit: [id number] AGE: 29 Location: [facility] Re05/16/19 SEX: F Status: REG REF SPEC: [id number] LUCINDA: 05/16/19-1108 RAMIN BRIAN: Lois Maciel CNM REQ: [id number] RECD: 05/16/19-3081 STATUS: COMP _ SOURCE: URINE SPDES: ORDERED: Urine Culture COMMENTS: [id number] Urine Source: Random Procedure Result Reported Site Urine Culture Final 05/18/19- 1018 ML No growth of clinically significant organisms * ML - Main Lab . END OF REPORT DEPARTMENT OF PATHOLOGY, [address] [place] [address] Haresh Mcdonald M.D. Director [facility] # [id number] Procedures Date Code Description Status 11/08/2019 14174 Biophysical Profile W/ NST Completed 10/30/2019 08740 Non-Stress Test Completed 10/08/2019 47148 Injection Intramuscular Or Subcutaneous Completed 09/12/2019 99728 Echography Uterus Follow-Up Or Repeat Completed Medical Devices Description No Information Available Encounters Description No Information Available Assessments Date Code Description Provider 11/08/2019 O99.213 Obesity complicating , third Ultrasounds trimester 11/08/2019 O10.012 Pre-existing essential hypertension Ultrasounds complicating , second trimester 10/30/2019 O99.213 Obesity complicating , third Adria Ovalle MD trimester 10/30/2019 O10.012 Pre-existing essential hypertension Adria Ovalle MD complicating , second trimester 10/30/2019 O34.211 Maternal care for low transverse scar from Adria Ovalle MD previous delivery 10/08/2019 O99.213 Obesity complicating , third Nel Rodriguez MD trimester 09/12/2019 O10.012 Pre-existing essential hypertension Nel Rodriguez MD complicating , second trimester 09/12/2019 Z36.9 Encounter for screening, Adria Ovalle MD unspecified 09/12/2019 O99.212 Obesity complicating , second Nle Rodriguez MD trimester 09/12/2019 O10.012 Pre-existing essential hypertension Nel Rodriguez MD complicating , second trimester 09/12/2019 Z36.9 Encounter for screening, Laboratory unspecified 09/12/2019 O10.012 Pre-existing essential hypertension Ultrasounds complicating , second trimester 09/12/2019 O99.212 Obesity complicating , second Ultrasounds trimester 08/03/2019 O34.211 Maternal care for low transverse scar from Nel Rodriguez MD previous delivery 06/25/2019 Z36.9 Encounter for screening, Matthew Amaya M.D. unspecified 06/25/2019 Z36.9 Encounter for screening, Laboratory unspecified 06/18/2019 Z36.9 Encounter for screening, Nirmala Bailey MD unspecified 06/18/2019 O34.211 Maternal care for low transverse scar from Wally De La Cruz JR, DO previous delivery 06/18/2019 Z36.9 Encounter for screening, Laboratory unspecified 05/16/2019 O99.211 Obesity complicating , first Lois Maciel CNM trimester Plan of Treatment 04/13/2019 - Nel Rodriguez MDO36.80x1 with inconclusive viability, fetus 1Comments:Pt to schedule f/u routine ob visit. Will need to repeat pap due to h/o abnl and discuss weight. Functional Status Description No Information Available Mental Status Description No Information Available Referrals Refer to Reason for Referral Status Appt Date [facility] Pt has BMI of 50 Has had C/S -->--> Closed 07/17/2019 C/S as her obstetric Hx Would like opportunity to TOLAC, not appropriate [place] [facility] [place] appropriate [place] candidate for [facility], we could co-manage also complicated by suspected CHTN Has not had Anatomy USN yet, this should ideally just be done at [facility] Last delivery was at [address] [address] [phone]
--- OUTSIDE RECORDS SUMMARY | 2019-11-16 06:21 | XMS REPORT | Continuity of Care Document ---
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 [phone] Problems Active Problems Provider Date H/O: section [...] CPT Code Status Date Vaccine Lot # [id number] Given 09/14/2017 Tetnus, Diptheria Toxoids And Acellular Pertussis, 499PG PT > 7Yrs Old Vital Signs Date Vital Result Comment 05/16/2019 10:58am BP Systolic 142 mmHg BP Diastolic 94 mmHg Height 60.98 inches 5'0.98" Weight 266.00 lb BMI (Body Mass Index) 50.3 kg/m2 Last Menstrual Period 1642426 4 Parity 3 04/13/2019 11:17am BP Systolic 132 mmHg BP Diastolic 78 mmHg Height 60.98 inches 5'0.98" Weight 268.00 lb BMI (Body Mass Index) 50.7 kg/m2 Last Menstrual Period 5522497 4 Parity 3 Results Test Acquired Date Facility Test Result H/L Range Note Laboratory test 11/08/2019 [facility] Genital For <pending> [place] [address] GRP B Strep [phone] Only Laboratory test 09/12/2019 [facility] Glucose 1 HR 108 mg/dL Normal 70-160 1 [place] [address] Post Prandial [phone] CBC With No 09/12/2019 [facility] White Blood 9.8 Normal 3.5- 10.8 [place] [address] Count 10^3/uL [phone] Red Blood Count 3.84 10^6/uL Normal 3.70-4.87 Hemoglobin 10.4 g/dL Low 12.0-16.0 Hematocrit 31 % Low 35-47 Mean Corpuscular Volume 80 fL Normal 80-97 Mean Corpuscular Hemoglobin 27 pg Normal 27-31 Mean Corpuscular HGB Conc 34 g/dL Normal 31-36 Red Cell Distribution Width 15 % Normal 10-15 Platelet Count 185 10^3/uL Normal 150-450 Mean Platelet Volume 8.3 fL Normal 7.4-10.4 Laboratory test 09/12/2019 [facility] AB Screen NEGATIVE 2 [place] [address] [phone] Laboratory test 08/03/2019 [facility] Cytology SEE RESULT 3 [place] [address] BELOW [phone] GC/Chlamydia Dna 08/03/2019 [facility] GCCHL Disclaimer (SEE NOTE) 4 [place] [address] [phone] Chlamydia trachomatis Trena Negative Negative Neisseria gonorrhoeae (GC) Trena Negative Negative Laboratory test 06/25/2019 [facility] Glucose 1 HR 115 mg/dL Normal 70-160 5 [place] [address] Post Prandial [phone] Afp,Screen 06/18/2019 [facility] Results [place] [address] Summary [phone] Neural Tube Defect Estimate SEE BELOW 6 [...] Repeat Testing Initial testing Physician Phone Number [phone] MARIELLE by LMP 11/26/19 GA On Collection By Dates SEE BELOW wk,d 7 GA Used In Risk Estimate Dates estimate Afp 17.5 ng/mL Afp MoM 0.68 MoM <2.50 Interpretation See Comment 8 Additional Comments See Comment 9 Recommended Follow Up None. General Test Information See Comment 10 Lead 06/18/2019 [facility] Lead,Venous, B < 1.0 g/dL 0.0- 4.9 11 [place] [address] [phone] Venous/Capillary Venous Submitting Laboratory Phone [phone] Laboratory 06/18/2019 [facility] Syphillis Negative Negative 13 [place] [address] Igg W/Reflex [phone] RPR HIV 1&2 p24 06/18/2019 [facility] HIV 4th [place] [address] Generation [phone] Laboratory 06/18/2019 [facility] Hemoglobin 5.3 % Normal 4.0- 5.6 14 [place] [address] A1c [phone] Hepatitis B Surface Antigen Nonreactive Nonreactive 15 Type And Screen 06/18/2019 [facility] Patient [place] [address] [phone] Antibody Screen NEGATIVE Laboratory test 06/18/2019 [facility] Uric Acid 4.2 mg/dL Normal 2.3-6.6 16 [place] [address] [phone] Rubella Screen IgG Immune Immune 17 Comp Metabolic 06/18/2019 [facility] Sodium 136 mmol/L Normal 135-145 [place] [address] [phone] Potassium 4.4 mmol/L Normal 3.5-5.0 Chloride 106 [...] 135.2 >60 18 CBC With No 06/18/2019 [facility] White Blood 9.1 10^3/uL Normal 3.5-10.8 [place] [address] Count [phone] Red Blood Count 4.30 10^6/uL Normal 3.70-4.87 Hemoglobin 11.8 g/dL Low 12.0-16.0 Hematocrit 35 % Normal 35-47 Mean Corpuscular Volume 81 fL Normal 80-97 Mean Corpuscular Hemoglobin 27 pg Normal 27-31 Mean Corpuscular HGB Conc 34 g/dL Normal 31-36 Red Cell Distribution Width 14 % Normal 10-15 Platelet Count 188 10^3/uL Normal 150-450 Mean Platelet Volume 8.9 fL Normal 7.4-10.4 GC/Chlamydia Dna 06/18/2019 [facility] GCCHL Disclaimer (SEE NOTE) 19 [place] [address] [phone] Chlamydia trachomatis Trena Negative Negative Neisseria gonorrhoeae (GC) Trena Negative Negative Laboratory test 06/18/2019 [facility] Miscellaneous Test See Comment 20 [place] [address] [phone] Urine Culture And 05/16/2019 [facility] Urine Culture SEE RESULT 21 [place] [address] BELOW [phone] [id number] 2 [id number] 3 SEE RESULT BELOW Name: EMILEE CAVANAUGH : [address]: Nel Rodriguez MD Acct: [id number] Unit: [id number] AGE: 29 Location: [facility] Re08/03/19 SEX: F Status: REG REF SPEC: [id number] LUCINDA: 08/03/19-[address]: Nel Rodriguez MD REQ: [id number] RECD: 08/03/19 STATUS: SOUT _ ORDERED: TP IMAGE ANALYS, HPV/Thin Prep COMMENTS: [id number] FINAL DIAGNOSIS Negative for Intraepithelial lesion or [...] CONTINUED ON NEXT PAGE DEPARTMENT OF PATHOLOGY, [address] [place] [address] Haresh Mcdonald M.D. Director [facility] # [id number] CYTOLOGY PATIENT INFORMATION Patient Information: HPV: High risk HPV RNA testing regardless of pap results. Actual Specimen Date: 08/03/19 Last Menstrual Date: 02/20/19 Signed by and Reported on: LUIS EDUARDO Archer (ASCP) 1438 This Pap test was evaluated with the assistance of the In[employer] Moneyp Test Imaging System. Due to cytologic findings at the public speaking coach microscope, comprehensive manual rescreening by a Film Recordist may be required. The Pap Smear is [...] years. END OF REPORT DEPARTMENT OF PATHOLOGY, [address] [place] [address] Haresh Mcdonald M.D. Director [facility] # [id number] 4 As with all diagnostic procedures, the laboratory results obtained should be used in conjunction with other clinical information available to the physician, including confirmation by another method, as applicable. 5 [id number] 6 RESULT: 7 RESULT: 17,0 8 RESULT: [...] developed and its performance characteristics determined by [facility] in a manner consistent with CLIA requirements. This test has not been cleared or approved by the U.S. Food and Drug Administration. Test Performed by: [address] [address] Foreclosure Specialist: Nelson Sweet M.D. Ph.D.; CLIA# [id number] 11 ADDITIONAL INFORMATION Testing performed by Inductively Coupled Plasma-Mass Spectrometry (ICP-MS). This test was developed and its performance characteristics determined by [facility] in a manner consistent with CLIA requirements. This test has not been cleared or approved by the U.S. Food and Drug Administration. 12 Test Performed by: [facility] [address] [place] [address] Foreclosure Specialist: Nelson Sweet M.D. Ph.D.; [facility]# [id number] 13 [id number] 14 Therapeutic target for the treatment of diabetes mellitus patients is <7% HBA1C, and in selective patients <6.0%. Please refer to [place] Diabetes Association diabetic care guidelines for further information. 15 [id number] 18 Because ethnic data is not always [...] This test has been modified from the gravity prospecting observer helper's instructions. Its performance characteristics were determined by [facility] in a manner consistent with CLIA [...] developed and its performance characteristics determined by [facility] in a manner consistent with CLIA requirements. This test has not been cleared or approved by the U.S. Food and Drug Administration. Test Performed by: [facility] [address] [place] [address] Foreclosure Specialist: Nelson Sweet M.D. Ph.D.; CLIA# [id number] 21 SEE RESULT BELOW Name: EMILEE CAVANAUGH : [address]: Lois Maciel CNM Acct: [id number] Unit: [id number] AGE: 29 Location: [facility] Re05/16/19 SEX: F Status: REG REF SPEC: [id number] LUCINDA: 05/16/19-[address]: Lois Maciel CNM REQ: [id number] RECD: 05/16/19-2323 STATUS: COMP _ SOURCE: URINE [facility]: ORDERED: Urine Culture COMMENTS: [id number] Urine Source: Random Procedure Result Reported Site Urine Culture Final 05/18/19- 1018 ML No growth of clinically significant organisms * ML - Main Lab . END OF REPORT DEPARTMENT OF PATHOLOGY, [address] [place] [address] Haresh Mcdonald M.D. Director [facility] # [id number] Procedures Date Code Description Status 11/08/2019 93110 Biophysical Profile W/ NST Completed 10/30/2019 09448 Non-Stress Test Completed 10/08/2019 78992 Injection Intramuscular Or Subcutaneous Completed 09/12/2019 72058 Echography Uterus Follow-Up Or Repeat Completed Medical Devices Description No Information Available Encounters Description No Information Available Assessments Date Code Description Provider 11/08/2019 O99.213 Obesity complicating , third Nel Rodriguez MD trimester 11/08/2019 O99.213 Obesity complicating , third Nel Rodriguez MD trimester 11/08/2019 O10.012 Pre-existing essential hypertension Nel Rodriguez MD complicating , second trimester 11/08/2019 O99.213 Obesity complicating , third Ultrasounds [...] unspecified 09/12/2019 O99.212 Obesity complicating , second Nel Rodriguez MD trimester 09/12/2019 O10.012 Pre-existing [...] care for low transverse scar from Wally Jono JR, DO previous delivery 06/18/2019 Z36.9 Encounter [...] to Reason for Referral Status Appt Date [facility] Pt has BMI of 50 Has had C/S -->--> Closed 07/17/2019 C/S as her obstetric Hx Would like opportunity to TOLAC, not appropriate TOLAC candidate for [facility] [place] Could be appropriate [place] candidate for [place], we could co-manage also complicated by suspected CHTN Has not had Anatomy USN yet, this should ideally just be done at [place] Last delivery was at [address] [id number] [phone]
--- OUTSIDE RECORDS SUMMARY | 2019-11-16 06:21 | XMS REPORT | Continuity of Care Document ---
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 [phone] Problems Active Problems Provider Date H/O: section [...] CPT Code Status Date Vaccine Lot # [id number] Given 09/14/2017 Tetnus, Diptheria Toxoids And Acellular Pertussis, 499PG PT > 7Yrs Old Vital Signs Date Vital Result Comment 05/16/2019 10:58am BP Systolic 142 mmHg BP Diastolic 94 mmHg Height 60.98 inches 5'0.98" Weight 266.00 lb BMI (Body Mass Index) 50.3 kg/m2 Last Menstrual Period 1223207 4 Parity 3 04/13/2019 11:17am BP Systolic 132 mmHg BP Diastolic 78 mmHg Height 60.98 inches 5'0.98" Weight 268.00 lb BMI (Body Mass Index) 50.7 kg/m2 Last Menstrual Period 8217493 4 Parity 3 Results Test Acquired Date Facility Test Result H/L Range Note Laboratory test 11/08/2019 [facility] Genital For <pending> [place] [address] GRP B Strep [phone] Only Laboratory test 09/12/2019 [facility] Glucose 1 HR 108 mg/dL Normal 70-160 1 [place] [address] Post Prandial [phone] CBC With No 09/12/2019 [facility] White Blood 9.8 Normal 3.5- 10.8 [place] [address] Count 10^3/uL [phone] Red Blood Count 3.84 10^6/uL Normal 3.70-4.87 Hemoglobin 10.4 g/dL Low 12.0-16.0 Hematocrit 31 % Low 35-47 Mean Corpuscular Volume 80 fL Normal 80-97 Mean Corpuscular Hemoglobin 27 pg Normal 27-31 Mean Corpuscular HGB Conc 34 g/dL Normal 31-36 Red Cell Distribution Width 15 % Normal 10-15 Platelet Count 185 10^3/uL Normal 150-450 Mean Platelet Volume 8.3 fL Normal 7.4-10.4 Laboratory test 09/12/2019 [facility] AB Screen NEGATIVE 2 [place] [address] [phone] Laboratory test 08/03/2019 [facility] Cytology SEE RESULT 3 finding [place] [address] BELOW [phone] GC/Chlamydia Dna 08/03/2019 [facility] GCCHL Disclaimer (SEE NOTE) 4 Probe [place] [address] [phone] Chlamydia trachomatis Trena Negative Negative Neisseria gonorrhoeae (GC) Trena Negative Negative Laboratory test 06/25/2019 [facility] Glucose 1 HR 115 mg/dL Normal 70-160 5 finding [place] [address] Post Prandial [phone] Afp,Screen 06/18/2019 [facility] Results [place] [address] Summary [phone] Neural Tube Defect Estimate SEE BELOW 6 [...] Repeat Testing Initial testing Physician Phone Number [phone] MARIELLE by LMP 11/26/19 [place] On Collection By Dates SEE BELOW wk,d 7 GA Used In Risk Estimate Dates estimate Afp 17.5 ng/mL Afp MoM 0.68 MoM <2.50 Interpretation See Comment 8 Additional Comments See Comment 9 Recommended Follow Up None. General Test Information See Comment 10 Lead 06/18/2019 [facility] Lead,Venous, B < 1.0 g/dL 0.0- 4.9 11 [place] [address] [phone] Venous/Capillary Venous Submitting Laboratory Phone [phone] Laboratory 06/18/2019 [facility] Syphillis Negative Negative 13 [place] [address] Igg W/Reflex [phone] RPR HIV 1&2 p24 06/18/2019 [facility] HIV 4th [place] [address] Generation [phone] Laboratory 06/18/2019 [facility] Hemoglobin 5.3 % Normal 4.0- 5.6 14 [place] [address] A1c [phone] Hepatitis B Surface Antigen Nonreactive Nonreactive 15 Type And Screen 06/18/2019 [facility] Patient [place] [address] [phone] Antibody Screen NEGATIVE Laboratory test 06/18/2019 [facility] Uric Acid 4.2 mg/dL Normal 2.3-6.6 16 [place] [address] [phone] Rubella Screen IgG Immune Immune 17 Comp Metabolic 06/18/2019 [facility] Sodium 136 mmol/L Normal 135-145 Panel [place], [place] [address]39 [phone] Potassium 4.4 mmol/L Normal 3.5-5.0 Chloride 106 [...] 135.2 >60 18 CBC With No 06/18/2019 [facility] White Blood 9.1 10^3/uL Normal 3.5-10.8 [place] [address] Count [phone] Red Blood Count 4.30 10^6/uL Normal 3.70-4.87 Hemoglobin 11.8 g/dL Low 12.0-16.0 Hematocrit 35 % Normal 35-47 Mean Corpuscular Volume 81 fL Normal 80-97 Mean Corpuscular Hemoglobin 27 pg Normal 27-31 Mean Corpuscular HGB Conc 34 g/dL Normal 31-36 Red Cell Distribution Width 14 % Normal 10-15 Platelet Count 188 10^3/uL Normal 150-450 Mean Platelet Volume 8.9 fL Normal 7.4-10.4 GC/Chlamydia Dna 06/18/2019 [facility] GCCHL Disclaimer (SEE NOTE) 19 [place] [address] [phone] Chlamydia trachomatis Trena Negative Negative Neisseria gonorrhoeae (GC) Trena Negative Negative Laboratory test 06/18/2019 [facility] Miscellaneous Test See Comment 20 [place] [address] [phone] Urine Culture And 05/16/2019 [facility] Urine Culture SEE RESULT [address] [place] [address] BELOW [phone] [id number] 3 SEE RESULT BELOW Name: EMILEE CAVANAUGH : [address]: Nel Rodriguez MD Acct: [id number] Unit: [id number] AGE: 29 Location: [facility] Re08/03/19 SEX: F Status: REG REF SPEC: [id number] LUCINDA: 08/03/19-[address] [facility] [address]: Nel Rodriguez MD REQ: [id number] RECD: 08/03/19 STATUS: SOUT _ ORDERED: TP IMAGE ANALYS, HPV/Thin Prep COMMENTS: [id number] FINAL DIAGNOSIS Negative for Intraepithelial lesion or [...] CONTINUED ON NEXT PAGE DEPARTMENT OF PATHOLOGY, [address] [place] [address] Haresh Mcdonald M.D. Director [facility] # [id number] CYTOLOGY PATIENT INFORMATION Patient Information: HPV: High risk HPV RNA testing regardless of pap results. Actual Specimen Date: 08/03/19 Last Menstrual Date: 02/20/19 Signed by and Reported on: LUIS EDUARDO Archer (ASCP) 6838 This Pap test was evaluated with the assistance of the PenteoSurroundPrep Test Imaging System. Due to cytologic findings at the dope house operator helper microscope, comprehensive manual rescreening by a Salvage Machine Operator may be required. The Pap Smear is [...] years. END OF REPORT DEPARTMENT OF PATHOLOGY, [address] [place] [address] Haresh Mcdonald M.D. Director [facility] # [id number] 4 As with all diagnostic procedures, the laboratory results obtained should be used in conjunction with other clinical information available to the physician, including confirmation by another method, as applicable. 5 [id number] 6 RESULT: 7 RESULT: 17,0 8 RESULT: [...] developed and its performance characteristics determined by [facility] in a manner consistent with CLIA requirements. This test has not been cleared or approved by the U.S. Food and Drug Administration. Test Performed by: [facility] - [address] [address] Electro Mechanical Assembler: Nelson Sweet M.D. Ph.D.; CLIA# [id number] 11 ADDITIONAL INFORMATION Testing performed by Inductively Coupled Plasma-Mass Spectrometry (ICP-MS). This test was developed and its performance characteristics determined by [facility] in a manner consistent with CLIA requirements. This test has not been cleared or approved by the U.S. Food and Drug Administration. 12 Test Performed by: [facility] [address] [place] [address] Electro Mechanical Assembler: Nelson Sweet M.D. Ph.D.; [facility]# [id number] 13 [id number] 14 Therapeutic target for the treatment of diabetes mellitus patients is <7% HBA1C, and in selective patients <6.0%. Please refer to [place] Diabetes Association diabetic care guidelines for further information. 15 [id number] 18 Because ethnic data is not always [...] This test has been modified from the service clerk's instructions. Its performance characteristics were determined by [facility] in a manner consistent with CLIA requirements. [...] developed and its performance characteristics determined by [facility] in a manner consistent with CLIA requirements. This test has not been cleared or approved by the U.S. Food and Drug Administration. Test Performed by: [place] [address] Electro Mechanical Assembler: Nelson Sweet M.D. Ph.D.; CLIA# [id number] 21 SEE RESULT BELOW Name: EMILEE CAVANAUGH : [address]: Lois Maciel CNM Acct: [id number] Unit: [id number] AGE: 29 Location: [facility] Re05/16/19 SEX: F Status: REG REF SPEC: [id number] LUCINDA: 05/16/19-[address]: Lois Maciel CNM REQ: [id number] RECD: 05/16/19-3765 STATUS: COMP _ SOURCE: URINE SPDES: ORDERED: Urine Culture COMMENTS: [id number] Urine Source: Random Procedure Result Reported Site Urine Culture Final 05/18/19- 1018 ML No growth of clinically significant organisms * ML - Main Lab . END OF REPORT DEPARTMENT OF PATHOLOGY, [address] [place] [address] Haresh Mcdonald M.D. Director [facility] # [id number] Procedures Date Code Description Status 11/08/2019 81667 Biophysical Profile W/ NST Completed 10/30/2019 69155 Non-Stress Test Completed 10/08/2019 91809 Injection Intramuscular Or Subcutaneous Completed 09/12/2019 54250 Echography Uterus Follow-Up Or Repeat Completed Medical [...] to Reason for Referral Status Appt Date [facility] Pt has BMI of 50 Has had C/S -->--> Closed 07/17/2019 C/S as her obstetric Hx Would like opportunity to TOLAC, [place] appropriate [place] [facility] [place] candidate for [place], we could co-manage also complicated by suspected CHTN Has not had Anatomy USN yet, this should ideally just be done at [place] Last delivery was at [address] [address] [phone]
--- NOTE | 2019-11-16 07:21 | HP ---
General Information - Reason for Visit repeat section - General Information Maternal Age: 29 Grav: 4 Para: 3 SAB: 0 IEA: 0 Estimated Due Date: 11/28/19 Determined By: Early Ultrasound Maternal Blood Type and Rh: A Negative - Results this Serology/RPR Result: Non-Reactive Rubella Result: Immune HBsAg Result: Negative HIV Result: Negative GBS Culture Result: Negative Past Medical History Delivery History: Hx C/Section, See Records Pertinent Past Medical History: See Records Pertinent Past Surgical History: See Records Pertinent Family History: See Records - Antepartal Records Antepartal Records: Reviewed, Complicated by: - obesity/chronic hypertension Review of Systems Constitutional: Comfortable CV Complaint: No Respiratory: Shortness of Breath: No Gastrointestinal: No Nausea/Vomiting Genitourinary: No Dysuria, No Bleeding, No Leaking Fluid Musculoskeletal: No Complaint Movement: Normal Exam Allergies/Adverse Reactions: Allergies Sulfa (Sulfonamide Antibiotics) Allergy (Verified 11/16/19 06:41) Hives Vital Signs 11/16/19 06:52 Temperature 96.8 F Pulse Rate 109 Respiratory 18 Rate Blood Pressure 157/99 (mmHg) O2 Sat by Pulse 99 Oximetry - Measurements Height: 5 ft 1 in Weight: 284 lb Weight in lbs: 284.756679 Body Mass Index (BMI): 53.6 Pre- Weight: 266 lb Weight Gained This : 18 lbs and 0 ozs - Exam Breast: Breast Exam Deferred CVA: No CVA Tenderness Extremities: No Edema Heart: Normal Rhythm/Heart Sounds HEENT: No Significant Findings Lungs: Clear Bilaterally Rectal: Rectal Exam Deferred Reflexes: DTR 2+ Thyroid: No Thyromegaly - Abdominal Exam Abdomen Exam: Non-Tender - Ultrasound/Biophysical Profile Ultrasound Status: Not Done Targeted Exam Findings See L&D Outpatient Visit Provider Note for Findings: N/A EFM Findings - External Monitor Findings Baseline Heart Rate: 140 External Monitor Findings: Accelerations Present, No Pattern of Variable or Late Decelerations, Variability Moderate Contractions: None Assessment/Plan - Assessment Pt 29 yo present for repeat section. Pt declines tubal ligation and is planning on Mirena post - Plan Plan: C/S Delivery - Reviewed with patient risks and benifits of repeat section. Pt accepts risk to include but not limited to infection, bleeding, damage to internal organs, need for blood transfusion. Consent form signed and reviewed together.
[2019-11-16] MEDS ORDERED: Sodium Citrate/Citric Acid* 15 ML UDC ONE (07:28)
[2019-11-16 07:30] LABS: Urine Benzodiazepine Screen None Detected (None Detect); Urine Opiates Screen None Detected (None Detect)
[2019-11-16] MEDS ORDERED: ceFOXitin 2 GM IVPREMIX* 2 GM/50 ML BAG ONE (07:36)
[2019-11-16] MEDS ORDERED: OXYTOCIN* 10 UNITS/ML 1 ML VIAL ONE (07:45)
[2019-11-16] MEDS ORDERED: Bupivacaine 0.5% SDV PF* 30ML VIAL ONE (07:45)
[2019-11-16] MEDS ORDERED: Morphine PF AMP (0.5MG/ML)* 5 MG/10 ML AMP ONE (07:46)
[2019-11-16] MEDS ORDERED: Phenylephrine 40 MCG/ML SYRINGE ONE (08:11)
[2019-11-16] MEDS ORDERED: Ketorolac INJ* 30 MG/ML 1 ML VIAL ONE (09:03)
[2019-11-16] MEDS ORDERED: fentaNYL* 50 MCG/ML 2 ML VIAL (100 MCG VIAL) IV PRN (09:38)
[2019-11-16] MEDS ORDERED: Sodium Citrate/Citric Acid* 15 ML UDC PO ONE (09:38)
[2019-11-16] MEDS ORDERED: Buffered Lidocaine 1% SYRIN* 1 ML/SYRINGE INTRADERM ONE (09:38)
[2019-11-16] MEDS ORDERED: Naloxone* 0.4 MG/ML 1 ML VIAL IV PRN ×2 (09:38→09:39)
[2019-11-16] MEDS ORDERED: Ondansetron INJ* 2 MG/ML VIAL IV PRN (09:39)
[2019-11-16] MEDS ORDERED: Scopolamine 1.5 mg* PATCH TRANSDERM PRN (09:39)
[2019-11-16] MEDS ORDERED: DiMENhydriNATE IV* 50 MG/ML VIAL IV PUSH PRN (09:39)
[2019-11-16] MEDS ORDERED: Witch Hazel PAD* JAR TOPICAL PRN (09:51)
[2019-11-16] MEDS ORDERED: Dibucaine 1% 28.35 GM TUBE PR PRN (09:51)
[2019-11-16] MEDS ORDERED: RHO D Immune Globulin (HUMAN)* 300 MCG = 1,500 I.U. INJ IM ONE (09:51)
[2019-11-16] MEDS ORDERED: Glycerin ADULT SUPP PR PRN (09:51)
[2019-11-16] MEDS ORDERED: Oxytocin in LR* 20 UNITS/1,000 ML BAG IVPB SCH (10:00)
[2019-11-16] MEDS ORDERED: Lactated Ringers 1000 ML Bag* 1,000 ML IV SCH ×2 (10:00)
[2019-11-16] MEDS: Ketorolac INJ* 30 MG/ML 1 ML VIAL IV SCH ×3 (10:05→21:18)
[2019-11-16] MEDS: Acetaminophen TAB* 325 MG PO SCH ×2 (11:52→15:16)
[2019-11-16] MEDS: Simethicone TAB* 80 MG TAB.CHEW PO SCH ×3 (12:35→21:19)
[2019-11-16] MEDS: Docusate CAP* 100 MG PO SCH ×2 (15:15→21:19)
[2019-11-16] MEDS: oxyCODONE/Acetamin 5/325 MG* TAB PO PRN ×2 (16:49→21:19)
[2019-11-16] MEDS: Escitalopram * 20 MG TABLET PO SCH (21:19)
--- NOTE | 2019-11-16 21:39 | OP ---
OPERATIVE REPORT: DATE OF OPERATION: 11/16/19 DATE OF : 89 SURGEON: Nirmala Bailey MD. [employer] PERSON: Wally De La Cruz DO. PRE-OP DIAGNOSIS: Desires repeat section, chronic hypertension, morbid obesity. POST-OP DIAGNOSIS: Desires repeat section, chronic hypertension, morbid obesity, delivered. OPERATIVE PROCEDURE: Repeat low-transverse section. ESTIMATED BLOOD LOSS: 600 cc. URINE OUTPUT: 600 cc of clear yellow urine. FLUIDS: 3100 cc of crystalloid. FINDINGS: Revealed a vertex female , body cord x1, vacuum assisted delivery, Apgars were 7 and 9, weight was 7 pounds 5 ounces. Normal appearing placenta. Manually extracted three-vessel cord, intact. Uterine cavity without evidence of retained membranes of placental tissue. Normally palpated tubes and ovaries. Had omental adhesion to the anterior abdominal wall. COMPLICATIONS: None apparent. DISPOSITION: Stable to recovery room. DESCRIPTION OF PROCEDURE: The patient was placed in dorsal lithotomy position. The abdomen was prepped and draped in a sterile standard fashion. Anesthesia was tested to appropriate level and the patient was identified with universal protocol. Incision was made to prior incision with scalpel. This was carried down to the fascia. Fascia was scored in the midline, extended laterally and superiorly using Celis scissors. Peritoneum was entered bluntly. The peritoneal incision was extended bluntly. Bladder blade was inserted. Lower uterine segment was identified. An incision was made in the lower uterine segment, tented up with an Allis. Amniotomy was created. The incision was extended laterally and superiorly using bandage scissors. The infant was found to be in the GALO position. Vacuum was applied after attempt was made for delivery of the head and the head was then delivered with vacuum x1 application. Shoulders and body cord was then reduced. Cord was allowed to pulse and baby was vigorous on field and then cord was clamped and the was handed off to awaiting boat hop. Appropriate cord blood was then obtained. Placenta was then manually extracted, three-vessel cord and intact. Uterine cavity was noted to be free of any membranes or placental tissue. Hysterotomy site was then reapproximated using 0 Vicryl x2, first layer running locked, second layer running imbricated. Tubes and ovaries were palpated normally. Hysterotomy site was noted to be hemostatic. There was dense omental adhesions to the anterior peritoneal wall, which was clamped x2 with Angela, transected and suture ligated using 0 Vicryl in HENEY fashion. Hemostasis was assured. Peritoneum was then reapproximated in a running fashion using 3-0 Vicryl. Subfascial area was visualized. Hemostasis assured and the fascia itself was then reapproximated using 0 Vicryl x2 in a running fashion. Subcu was lavaged. Hemostasis assured and the subcuticular tissue greater than 2 cm was reapproximated using 3-0 Vicryl in an interrupted fashion. The skin was then reapproximated using 4-0 Monocryl in a subcuticular fashion. Mastisol and Steris were then applied. All sponge, instruments, and blade counts were correct throughout the case. The patient tolerated the procedure well and went to the recovery room in stable condition. [id number]/CPS #: [id number] MTDD
[2019-11-17] MEDS: oxyCODONE TAB* 5 MG TAB PO PRN ×5 (01:35→23:38)
[2019-11-17] MEDS: Acetaminophen TAB* 325 MG PO PRN (01:35)
[2019-11-17] MEDS: Ketorolac INJ* 30 MG/ML 1 ML VIAL IV SCH (04:22)
[2019-11-17 05:44] LABS: ABS Eosinophils 0.2 10^3/ul (0-0.6); ABS Lymphocytes 1.8 10^3/ul (1.0-4.8); ABS Monocytes 1.1 10^3/ul (0-0.8); ABS Neutrophils 8.8 10^3/ul (1.5-7.7); Eosinophil % 1.4 %; Hematocrit 25 % (35-47); Hemoglobin 8.3 g/dL (12.0-16.0); Lymphocyte % 15.3 %; Mean Corpuscular HGB Conc 33 g/dL (31-36); Mean Corpuscular Hemoglobin 25 pg (27-31); Mean Corpuscular Volume 75 fL (80-97); Mean Platelet Volume 7.7 fL (7.4-10.4); Platelet Count 163 10^3/uL (150-450); Red Blood Count 3.36 10^6 /uL (3.70-4.87); Red Cell Distribution Width 16 % (10-15); White Blood Count 11.9 10^3/uL (3.5-10.8)
[2019-11-17] MEDS ORDERED: Tetan/Diph/Pertus SYR(Tdap)* 0.5 ML SYR(BOOSTRIX) use SYR contains LATEX IM ONE (09:00)
[2019-11-17] MEDS: Docusate CAP* 100 MG PO SCH ×3 (09:18→20:10)
[2019-11-17] MEDS: Prenatal Vitamin TAB PO SCH (09:18)
[2019-11-17] MEDS: Ferrous Gluconate TAB* 324 MG TAB PO SCH ×2 (09:18→20:10)
[2019-11-17] MEDS: Simethicone TAB* 80 MG TAB.CHEW PO SCH ×4 (09:18→20:10)
[2019-11-17] MEDS: Acetaminophen TAB* 325 MG PO SCH (10:13)
[2019-11-17] MEDS: Ibuprofen TAB* 600 MG PO PRN ×2 (11:04→17:04)
[2019-11-17] MEDS: Escitalopram * 20 MG TABLET PO SCH (20:10)
[2019-11-18] MEDS: Acetaminophen TAB* 325 MG PO PRN ×5 (03:12→21:13)
[2019-11-18] MEDS: Ibuprofen TAB* 600 MG PO PRN ×2 (03:13→09:21)
[2019-11-18] MEDS: oxyCODONE TAB* 5 MG TAB PO PRN ×5 (08:18→23:24)
[2019-11-18] MEDS: Simethicone TAB* 80 MG TAB.CHEW PO SCH ×4 (08:21→21:14)
[2019-11-18] MEDS: Ferrous Gluconate TAB* 324 MG TAB PO SCH ×2 (08:22→21:11)
[2019-11-18] MEDS: Docusate CAP* 100 MG PO SCH ×3 (08:22→21:11)
[2019-11-18] MEDS: Prenatal Vitamin TAB PO SCH (08:26)
[2019-11-18] MEDS ORDERED: Labetalol TAB* 100 MG PO ONE (14:00)
[2019-11-18] MEDS ORDERED: ALPRAZolam TAB* 0.5 MG PO PRN (16:25)
[2019-11-18] MEDS: Escitalopram * 20 MG TABLET PO SCH (21:13)
[2019-11-18] MEDS: Labetalol TAB* 100 MG PO SCH (21:14)
[2019-11-19] MEDS: Acetaminophen TAB* 325 MG PO PRN (01:42)
[2019-11-19] MEDS: Simethicone TAB* 80 MG TAB.CHEW PO SCH (08:13)
[2019-11-19] MEDS: oxyCODONE TAB* 5 MG TAB PO PRN ×2 (08:13→10:47)
[2019-11-19] MEDS: Ferrous Gluconate TAB* 324 MG TAB PO SCH (08:13)
[2019-11-19] MEDS: Prenatal Vitamin TAB PO SCH (08:13)
[2019-11-19] MEDS: Labetalol TAB* 100 MG PO SCH (08:13)
[2019-11-19] MEDS: Docusate CAP* 100 MG PO SCH (08:33)
[2019-11-19 08:41] VITALS: BP 152/94
[2019-11-19] MEDS ORDERED: Scopolamine PATCH Remove* 1 NOTE MISC PATCH OFF PRN (09:40)
== END 2019-11-19 11:50 | disposition home or self-care (01) | DRG 540 ==
LOC: MCHOB 06:18
PROVIDERS: ADMIT Obstetrics & Gynecology; ATTEND Obstetrics & Gynecology
PROC: 10D00Z1 Extraction of Products of Conception, Low, Open Approach (ICD-10-PCS; principal; 2019-11-16 07:45)
DX: O34.211 Maternal care for low transverse scar from previous cesarean delivery (principal); O10.02 Pre-existing essential hypertension complicating childbirth; O99.214 Obesity complicating childbirth; O99.344 Other mental disorders complicating childbirth; F41.8 Other specified anxiety disorders; O69.81X0 Labor and delivery complicated by cord around neck, without compression, not applicable or unspecified; O99.62 Diseases of the digestive system complicating childbirth; E66.01 Morbid (severe) obesity due to excess calories; K66.0 Peritoneal adhesions (postprocedural) (postinfection); O90.81 Anemia of the puerperium; D64.9 Anemia, unspecified; Z3A.38 38 weeks gestation of pregnancy; Z37.0 Single live birth
CPT/HCPCS: 36415; 80307; 85025; 85461; 86900; 86901; A9270-GY; G0480; J0694; J1885; J2405; J2590; J2790; J3490